=== PATIENT | male | born 1965 | race Two or more races ===

== ENCOUNTER 2017-11-21 22:09 | Inpatient (IN) | payer SELFPAY ==
[2017-11-21 22:47] LABS: ADD MAN DIFF? NO
[2017-11-21] MEDS: IV NORMAL SALINE 1000ML BAG 1,000 ML IV (22:48)
[2017-11-21 22:49] LABS: BASO # 0.1 x10^3/uL (0.0-0.2); BASO % 1 % (0-3); EOS % 0 % (0-3); HEMATOCRIT 44.1 % (39.0-53.0); HEMOGLOBIN 15.4 g/dL (13.0-17.5); LYMPH # 1.5 x10^3/uL (1.0-4.8); LYMPH % 13 % (24-48); MEAN CORPUSCULAR HEMOGLOBIN 31 pg (25-35); MEAN CORPUSCULAR HGB CONC 35 g/dL (31-37); MEAN CORPUSCULAR VOLUME 89 fL (79-100); MONO # 0.6 x10^3/uL (0.0-1.1); MONO % 5 % (0-9); NEUT # 9.3 x10^3uL (1.8-7.7); NEUT % 81 % (31-73); PLATELET COUNT 223 x10^3/uL (140-400); RED BLOOD COUNT 4.94 x10^6/uL (4.30-5.70); RED CELL DISTRIBUTION WIDTH 12.9 % (11.5-14.5); WHITE BLOOD COUNT 11.5 x10^3/uL (4.0-11.0)
[2017-11-21] MEDS: ONDANSETRON ODT 4 MG TAB.RAPDIS. PO (22:49)
[2017-11-21 22:57] LABS: ANION GAP 10 (6-14); BLOOD UREA NITROGEN 19 mg/dL (8-26); BUN/CREATININE RATIO 19 (6-20); CARBON DIOXIDE 28 mmol/L (21-32); CHLORIDE 106 mmol/L (98-107); GFR 78.8; GLUCOSE 109 mg/dL (70-99); POTASSIUM 3.5 mmol/L (3.5-5.1); SODIUM 144 mmol/L (136-145)
[2017-11-21] MEDS ORDERED: CONTRAST GIVEN MC (23:00)
[2017-11-21 23:03] LABS: ALBUMIN 3.6 g/dL (3.4-5.0); ALBUMIN/GLOBULIN RATIO 1.2 (1.0-1.7); ALK PHOS 76 U/L (46-116); ALT (SGPT) 24 U/L (16-63); AST (SGOT) 15 U/L (15-37); LIPASE 113 U/L (73-393); TOTAL BILIRUBIN 0.5 mg/dL (0.2-1.0); TOTAL PROTEIN 6.7 g/dL (6.4-8.2)
[2017-11-21 23:21] LABS: BILIRUBIN,URINE NEGATIVE (NEG); CLARITY,URINE CLEAR; COLOR,URINE YELLOW; GLUCOSE,URINE NEGATIVE (NEG); NITRITE,URINE NEGATIVE (NEG); PROTEIN,URINE 30 mg/dL (NEG-TRACE); UROBILINOGEN,URINE 0.2 mg/dL (0.2 mg/dL)
[2017-11-21 23:28] LABS: AMORPHOUS SEDIMENT,UR PRESENT /HPF; BACTERIA,URINE 0 /HPF (0-FEW); RBC,URINE 0 /HPF (0-2); WBC,URINE 0 /HPF (0-4)
[2017-11-22] MEDS ORDERED: ONDANSETRON PF 4 MG/2 ML VIAL. (00:15)
[2017-11-22] MEDS: ONDANSETRON PF 4 MG/2 ML VIAL. IV (00:23)
[2017-11-22] MEDS: fentaNYL PF VIAL 100 MCG/2 ML VIAL IV ×4 (00:47→12:42)
[2017-11-22] MEDS ORDERED: ONDANSETRON PF 4 MG/2 ML VIAL. IV ×2 (01:15→03:15)
[2017-11-22] MEDS: IV NORMAL SALINE 1000ML BAG 1,000 ML IV ×3 (02:55→17:48)
[2017-11-22] MEDS: PROCHLORPERAZINE 10 MG/2 ML VIAL. IV (03:27)
[2017-11-22] MEDS: IOHEXOL 300 MG/ML 100ML VIAL. IV (07:00)
[2017-11-22] MEDS: PANTOPRAZOLE IV PUSH 40 MG VIAL. IVP (13:38)
[2017-11-23] MEDS: PANTOPRAZOLE IV PUSH 40 MG VIAL. IVP (07:30)
[2017-11-23 07:32] LABS: ADD MAN DIFF? NO
[2017-11-23 07:35] LABS: BASO % 1 % (0-3); EOS % 1 % (0-3); HEMATOCRIT 43.6 % (39.0-53.0); HEMOGLOBIN 15.1 g/dL (13.0-17.5); LYMPH # 2.2 x10^3/uL (1.0-4.8); LYMPH % 28 % (24-48); MEAN CORPUSCULAR HEMOGLOBIN 31 pg (25-35); MEAN CORPUSCULAR HGB CONC 35 g/dL (31-37); MEAN CORPUSCULAR VOLUME 90 fL (79-100); MONO # 0.6 x10^3/uL (0.0-1.1); MONO % 8 % (0-9); NEUT # 5.1 x10^3uL (1.8-7.7); NEUT % 64 % (31-73); PLATELET COUNT 205 x10^3/uL (140-400); RED BLOOD COUNT 4.87 x10^6/uL (4.30-5.70); RED CELL DISTRIBUTION WIDTH 12.9 % (11.5-14.5)
[2017-11-23 07:54] LABS: ALBUMIN 3.1 g/dL (3.4-5.0); ALK PHOS 73 U/L (46-116); ALT (SGPT) 20 U/L (16-63); ANION GAP 6 (6-14); AST (SGOT) 14 U/L (15-37); BLOOD UREA NITROGEN 11 mg/dL (8-26); BUN/CREATININE RATIO 12 (6-20); CALCIUM 8.4 mg/dL (8.5-10.1); CARBON DIOXIDE 27 mmol/L (21-32); CHLORIDE 106 mmol/L (98-107); CREATININE 0.9 mg/dL (0.7-1.3); GLUCOSE 93 mg/dL (70-99); LIPASE 128 U/L (73-393); POTASSIUM 3.3 mmol/L (3.5-5.1); SODIUM 139 mmol/L (136-145); TOTAL BILIRUBIN 0.9 mg/dL (0.2-1.0); TOTAL PROTEIN 6.2 g/dL (6.4-8.2)
[2017-11-23] MEDS ORDERED: PANTOPRAZOLE 40 MG TABLET.DR. PO (16:00)
== END 2017-11-23 16:12 | disposition home or self-care (01) | DRG 392 ==
LOC: 5 NORTH 11-22 01:00 → ER 22:09
DX: K29.70 Gastritis, unspecified, without bleeding (principal); K56.609 Unspecified intestinal obstruction, unspecified as to partial versus complete obstruction; K52.9 Noninfective gastroenteritis and colitis, unspecified; K21.9 Gastro-esophageal reflux disease without esophagitis
CPT/HCPCS: 36415; 74018; 74022; 74177; 80053; 81001; 83690; 85025; 96361; 96374; 96375; 99285; 99285-25; C9113; J0780; J2405; J3010; J7030; Q0162

== ENCOUNTER 2021-02-18 19:26 | Emergency (ER) | payer SELFPAY ==
[2017-11-23 15:00] VITALS: BP 106/66
[~2021-02-18 19:26] MED LIST: PANT20TA2 PO
== END 2021-02-18 20:34 | disposition left against medical advice (07) ==
LOC: ER 19:26
DX: T14.8XXA Other injury of unspecified body region, initial encounter (principal); Z53.21 Procedure and treatment not carried out due to patient leaving prior to being seen by health care provider; W57.XXXA Bitten or stung by nonvenomous insect and other nonvenomous arthropods, initial encounter; Y93.89 Activity, other specified; Y92.89 Other specified places as the place of occurrence of the external cause; Y99.8 Other external cause status